=== PATIENT | female | born 1955 | race Caucasian/White ===

== ENCOUNTER 2017-08-02 12:20 | Emergency (ER) | payer SELFPAY ==
[~2017-08-02] VITALS: Ht 162.6 cm; Wt 56.0 kg
[~2017-08-02 12:20] MED LIST: AMBI5TAB PO; FLUT50SP EACH NARE; LEVA500T PO; PHEN0.4T PO; SYNT25TA PO
[2017-08-02 12:24] VITALS: BP 141/80; PULSE 61; RESP 18; TEMP 97.7; O2SAT 99
[2017-08-02] MEDS ORDERED: MULTTAB67 PO (12:38)
[2017-08-02] MEDS ORDERED: OMEGCAP PO (12:38)
--- NOTE | 2017-08-02 12:44 | PD ---
HPI Chief Complaint: Abdominal Pain Time Seen by Provider: 12:28 Travel History International Travel<30 days: No Contact w/Intl Traveler<30days: No Traveled to known affect area: No History of Present Illness HPI This 62-year-old female says that she has had 3 episodes in the last 3 days of severe pain across the lower chest. The first episode started around 1:30 in the morning and then she is up to 2 episodes which occurred about an hour after dinner. There is been no vomiting or diarrhea. Last episode lasted about 4-1/ 2 hours. She has been on the keto diet. She took some Tums and some Prilosec. She does not get any shortness of breath with it. The discomfort is quite severe. It is not present now. PFSH Past Medical History Diminished Hearing: No Immunizations Current: Yes Thyroid Disease: Yes ?: Not Menopausal: Yes Social History Alcohol Use: Yes Tobacco Use: Yes Substance Use: No Allergies-Medications (Allergen,Severity, Reaction): Coded Allergies: No Known Allergies (Unverified Adverse Reaction, Unknown, 08/02/17) Reported Meds & Prescriptions Reported Meds & Active Scripts Active Reported Multiple Vitamin 1 Tab 1 Tab PO DAILY [place]-3 Fish Oil/Vitamin (Fish Oil-Cholecalciferol) 1,000-1,000 Mg Cap 1 Cap PO DAILY Fluticasone Nasal [place] 50 Mcg/Act Naspr 100 Mcg EACH NARE DAILY 50 mcg/spray Synthroid (Levothyroxine Sodium) 25 Mcg Tab 88 Mcg PO DAILY Review of Systems Except as stated in HPI: all other systems reviewed are Neg General / Constitutional: No: Fever, Chills Eyes: No: Diploplia, Blurred Vision HENT: No: Headaches Cardiovascular: Positive: Chest Pain or Discomfort Respiratory: No: Cough Gastrointestinal: Positive: Abdominal Pain Genitourinary: No: Urgency, Frequency Musculoskeletal: No: Myalgias, Arthralgias Skin: No Rash, No Itching Neurologic: No: Weakness, Dizziness Endocrine: No: Heat Intolerance Hematologic/Lymphatic: No: Easy Bruising Physical Exam Narrative GENERAL: Well-developed female SKIN: Focused skin assessment warm/dry. HEAD: Atraumatic. Normocephalic. EYES: Pupils equal and round. No scleral icterus. No injection or drainage. ENT: No nasal bleeding or discharge. Mucous membranes pink and moist. NECK: Trachea midline. No JVD. CARDIOVASCULAR: Regular rate and rhythm. No murmur appreciated. RESPIRATORY: No accessory muscle use. Clear to auscultation. Breath sounds equal bilaterally. GASTROINTESTINAL: Abdomen soft, non-tender, nondistended. Hepatic and splenic margins not palpable. MUSCULOSKELETAL: No obvious deformities. No clubbing. No cyanosis. No edema. NEUROLOGICAL: Awake and alert. No obvious cranial nerve deficits. Motor grossly within normal limits. Normal speech. PSYCHIATRIC: Appropriate mood and affect; insight and judgment normal. Data Data Last Documented VS Vital Signs Date Time Temp Pulse Resp B/P (MAP) Pulse Ox O2 Delivery O2 Flow Rate FiO2 08/02/17 13:22 68 20 117/86 (96) 98 08/02/17 12:24 97.7 Orders Orders Electrocardiogram (08/02/17 12:40) Complete Blood Count With Diff (08/02/17 12:40) Comprehensive Metabolic Panel (08/02/17 12:40) Troponin I (08/02/17 12:40) Lipase (08/02/17 12:40) Us Abdomen Gallbladder (08/02/17 12:40) Labs Laboratory Tests Test 08/02/17 12:45 White Blood Count 4.9 TH/MM3 Red Blood Count 4.23 MIL/MM3 Hemoglobin 13.8 GM/DL Hematocrit 40.4 % Mean Corpuscular Volume 95.7 FL Mean Corpuscular Hemoglobin 32.8 PG Mean Corpuscular Hemoglobin Concent 34.2 % Red Cell Distribution Width 12.8 % Platelet Count 181 TH/MM3 Mean Platelet Volume 8.7 FL Neutrophils (%) (Auto) 52.2 % Lymphocytes (%) (Auto) 31.9 % Monocytes (%) (Auto) 10.9 % Eosinophils (%) (Auto) 3.5 % Basophils (%) (Auto) 1.5 % Neutrophils # (Auto) 2.5 TH/MM3 Lymphocytes # (Auto) 1.6 TH/MM3 Monocytes # (Auto) 0.5 TH/MM3 Eosinophils # (Auto) 0.2 TH/MM3 Basophils # (Auto) 0.1 TH/MM3 CBC Comment DIFF FINAL Differential Comment Blood Urea Nitrogen 9 MG/DL Creatinine 0.56 MG/DL Random Glucose 92 MG/DL Total Protein 7.0 GM/DL Albumin 3.8 GM/DL Calcium Level 8.7 MG/DL Alkaline Phosphatase 71 U/L Aspartate Amino Transf (AST/SGOT) 20 U/L Alanine Aminotransferase (ALT/SGPT) 19 U/L Total Bilirubin 0.7 MG/DL Sodium Level 132 MEQ/L Potassium Level 3.7 MEQ/L Chloride Level 97 MEQ/L Carbon Dioxide Level 26.5 MEQ/L Anion Gap 9 MEQ/L Estimat Glomerular Filtration Rate 109 ML/MIN Troponin I LESS THAN 0.02 NG/ML Lipase 125 U/L MDM Medical Decision Making Medical Screen Exam Complete: Yes Emergency Medical Condition: Yes Medical Record Reviewed: Yes Differential Diagnosis Differential includes gastritis, ulcer disease, GERD, cholelithiasis, coronary artery disease Narrative Course EKG shows right bundle branch block. Troponin is normal. I will recommend that she continue the Prilosec and follow-up with her primary care physician. Lab work does not show any evidence of biliary disease Diagnosis Primary Impression: GERD (gastroesophageal reflux disease) Scripts Omeprazole Magnesium (Prilosec) 20 Mg Tab 1 TAB PO DAILY for 90 Days Prov: Cayden Gray MD 08/02/17 Disposition: 01 DISCHARGE HOME Condition: Stable Cayden Gray MD Aug 02, 2017 12:44
[2017-08-02 13:06] LABS: AUTOMATED NEUTROPHIL # 2.5 TH/MM3 (1.8-7.7); BASOPHIL # 0.1 TH/MM3 (0-0.2); BASOPHIL % 1.5 % (0.0-2.0); EOSINOPHIL # 0.2 TH/MM3 (0-0.4); EOSINOPHIL % 3.5 % (0.0-4.0); HEMATOCRIT 40.4 % (35.0-46.0); HEMOGLOBIN 13.8 GM/DL (11.6-15.3); LYMPH % 31.9 % (9.0-44.0); LYMPHOCYTE # 1.6 TH/MM3 (1.0-4.8); MEAN CELL VOLUME 95.7 FL (80.0-100.0); MEAN CORPUSCULAR HEMOGLOBIN 32.8 PG (27.0-34.0); MEAN CORPUSCULAR HGB CONC 34.2 % (32.0-36.0); MEAN PLATELET VOLUME 8.7 FL (7.0-11.0); MONO % 10.9 % (0.0-8.0); MONOCYTE # 0.5 TH/MM3 (0-0.9); NEUT % 52.2 % (16.0-70.0); PLATELET COUNT 181 TH/MM3 (150-450); RED BLOOD COUNT 4.23 MIL/MM3 (4.00-5.30); RED CELL DISTRIBUTION WIDTH 12.8 % (11.6-17.2); WHITE BLOOD COUNT 4.9 TH/MM3 (4.0-11.0)
[2017-08-02 13:21] LABS: CHLORIDE 97 MEQ/L (98-107); SODIUM (NA) 132 MEQ/L (136-145)
[2017-08-02 13:22] VITALS: BP 117/86; PULSE 68; RESP 20; O2SAT 98
[2017-08-02 13:25] LABS: CALCIUM 8.7 MG/DL (8.5-10.1)
[2017-08-02 13:26] LABS: ALBUMIN 3.8 GM/DL (3.4-5.0); BICARBONATE 26.5 MEQ/L (21.0-32.0); BLOOD UREA NITROGEN 9 MG/DL (7-18); GLUCOSE,RANDOM 92 MG/DL (74-106)
[2017-08-02 13:28] LABS: ALT (GPT) 19 U/L (10-53)
[2017-08-02 13:29] LABS: AST (GOT) 20 U/L (15-37); CREATININE 0.56 MG/DL (0.50-1.00); GLOMERULAR FILTRATION RATE 109 ML/MIN (>89)
[2017-08-02 13:30] LABS: TOTAL BILIRUBIN ADULT 0.7 MG/DL (0.2-1.0)
[2017-08-02 13:31] LABS: ALKALINE PHOSPHATASE 71 U/L (45-117)
[2017-08-02 13:34] LABS: TROPONIN I LESS THAN 0.02 NG/ML (0.02-0.05)
[2017-08-02] MEDS ORDERED: PRIL20TA2 PO (13:50)
--- NOTE | 2017-08-03 16:08 | EKG ---
Date Performed: 08/02/2017 Time Performed: 13:00:25 PTAGE: 62 years EKG: SINUS BRADYCARDIA RIGHT BUNDLE BRANCH BLOCK ABNORMAL ECG NO PREVIOUS TRACING DOCTOR: Bonifacio Wells Interpretating Date/Time 08/03/2017 16:07:12
== END 2017-08-02 14:07 | disposition home or self-care (01) ==
LOC: PHED 12:20
DX: K21.9 Gastro-esophageal reflux disease without esophagitis (principal); E07.9 Disorder of thyroid, unspecified; Z72.0 Tobacco use
CPT/HCPCS: 80053; 83690; 84484; 85025; 93005; 99284